=== PATIENT | female | born 2000 | race Caucasian/White ===

== ENCOUNTER 2023-01-17 14:29 | Inpatient (IN) | payer OTHER ==
[2023-01-17] VITALS (8 sets, daily range): BP systolic 103–116; BP diastolic 55–75
[~2023-01-17] VITALS: Ht 149.9 cm; Wt 39.1 kg
[2023-01-17] MEDS ORDERED: normal saline 1000ML IV soln IVB ONE (14:50)
[2023-01-17] MEDS ORDERED: charcoal, activated 50 GM/240 ML bottle PO ONE (14:50)
[2023-01-17] MEDS ORDERED: charcoal/sorbitol 50gm/240ml suspension PO ONE (14:50)
--- NOTE | 2023-01-17 14:50 | NUR ---
TC TO POISON CONTROL WITH OVERDOSE INFORMATION. PATIENT HAS INGESTED APPROX 20 GRAMS OF IBUPROFEN. POISON CONTROL STATES THAT SYMPTOMS TO LOOK FOR INCLUDE: [employer] DEPRESSION, GI UPSET, SEIZURES, METABOLIC ACIDOSIS, RENAL FAILURE, AND CARDIAC CHANGES. POISON CONTROL SUGGESTS: NG TUBE WITH CHARCOAL (IF EARLY), DIAZEPINE ON STAND-BY FOR SEIZURE, DIRECTOR ZONE, INTUBATION FOR DETERIORATION IN MENTATION, CBC, CMP, ABG, EKG EVERY 4 HOURS.
[2023-01-17] MEDS ORDERED: succinylcholine 20mg/ml inj IV ONE ×2 (14:55→15:01)
[2023-01-17] MEDS ORDERED: etomidate 2mg/ml inj. IV ONE (14:55)
[2023-01-17 14:58] LABS: BASOPHILS # (AUTO) 0.1 X10'3 (0-0.2); BASOPHILS % (AUTO) 0.6 % (0-1); EOSINOPHILS # (AUTO) 0.1 X10'3 (0-0.9); EOSINOPHILS % (AUTO) 0.6 % (0-6); HEMATOCRIT 44.5 % (35.0-45.0); HEMOGLOBIN 14.5 g/dl (12.0-16.0); LYMPHOCYTES # (AUTO) 3.5 X10'3 (1.1-4.8); LYMPHOCYTES % (AUTO) 27.8 % (21-51); MEAN CORPUSCULAR HEMOGLOBIN 28.5 PG (27.0-31.0); MEAN CORPUSCULAR HGB CONC 32.5 g/dL (33.0-36.5); MEAN CORPUSCULAR VOLUME 87.5 FL (78-98); MEAN PLATELET VOLUME 8.2 FL (7.4-10.4); MONOCYTES # (AUTO) 1.4 X10'3 (0-0.9); MONOCYTES % (AUTO) 10.7 % (2-12); NEUTROPHILS # (AUTO) 7.7 X10'3 (1.8-7.7); NEUTROPHILS % (AUTO) 60.3 % (42-75); PLATELET COUNT 342 X10'3 (140-440); RED BLOOD COUNT 5.09 X10'6 (4.20-5.60); RED CELL DISTRIBUTION WIDTH 13.4 % (11.5-14.5); WHITE BLOOD COUNT 12.8 X10'3 (4.5-11.0)
[2023-01-17 15:14] LABS: ALANINE AMINOTRANSFERASE 13 U/L (12-78); ALBUMIN 5.1 G/DL (3.4-5.0); ALBUMIN/GLOBULIN RATIO 1.6 (1.1-1.5); ALKALINE PHOSPHATASE 89 IU/L (20-180); ANION GAP 13 (8-16); ASPARTATE AMINO TRANSFERASE 14 U/L (10-37); BILIRUBIN,TOTAL 0.4 MG/DL (0.1-1.0); BLOOD UREA NITROGEN 11 MG/DL (7-18); BUN/CREATININE RATIO 12.8 (6.6-38.0); CALCIUM 9.9 MG/DL (8.5-10.1); CHLORIDE 103 MMOL/L (99-107); CREATININE 0.86 MG/DL (0.40-0.90); GLUCOSE 138 MG/DL (70-104); POTASSIUM 4.2 MMOL/L (3.5-5.1); SODIUM 139 MMOL/L (135-145); TOTAL CARBON DIOXIDE 22.9 MMOL/L (24-32); TOTAL PROTEIN 8.2 G/DL (6.4-8.2); eGFR 84 ML/MIN
[2023-01-17] MEDS ORDERED: propofol 1000mg/100ml bottle 100 ML IV ONE (15:14)
[2023-01-17] MEDS ORDERED: propofol 1000mg/100ml bottle 100 ML IV SCH (15:15)
[2023-01-17 15:16] LABS: ETHANOL < 0.010 GM/DL (0.0-0.010)
[2023-01-17] MEDS: propofol 1000mg/100ml bottle 100 ML IV SCH ×2 (15:36→19:58)
[2023-01-17 15:52] LABS: ACETAMINOPHEN < 2.0 UG/ML (10-30)
[2023-01-17 16:25] LABS: CLARITY,URINE CLEAR (Clear); COLOR,URINE YELLOW (Yellow); GLUCOSE, URINE NEGATIVE (Neg); KETONES,URINE 15 mg/dl (Neg); LEUKOCYTE ESTERASE ,URINE NEGATIVE (Neg); NITRITES, URINE NEGATIVE (Neg); OCCULT BLOOD,URINE SMALL (Neg); PH,URINE 5.5 (4.8-8.0); PROTEIN,URINE NEGATIVE (Neg); UROBILINOGEN,URINE 0.2 E.U/dL (0.2-1.0)
[2023-01-17 16:30] LABS: BACTERIA,URINE NONE SEEN /HPF (Neg); MUCUS STRANDS FEW /LPF (Neg); RBC,URINE NONE SEEN /HPF (0-2); SQUAMOUS EPITHELIAL CELL,UR FEW /LPF (FEW); UA COLLECTION TYPE FOLEY CATH; WBC,URINE 0-4 /HPF (0-4)
[2023-01-17 16:41] LABS: URINE AMPHETAMINE SCREEN NEGATIVE (Neg); URINE BARBITUATE SCREEN NEGATIVE (Neg); URINE BENZODIAZEPINES SCREEN NEGATIVE (Neg); URINE CANNABINOID SCREEN NEGATIVE (Neg); URINE COCAINE SCREEN NEGATIVE (Neg); URINE METHADONE SCREEN NEGATIVE (Neg); URINE OPIATE SCREEN NEGATIVE (Neg); URINE PHENCYCLIDINE SCREEN NEGATIVE (Neg)
[2023-01-17 16:44] LABS: ABG BASE EXCESS -9.7 mmol/L (-2.0-2.0); ABG HCO3 16.4 mmol/L (22.0-26.0); ABG OXYGEN SATURATION 96.5 % (94-97); ABG PCO2 (T) 35.3 mmHg (32.0-45.0); ABG PO2 (T) 90.8 mmHg (75.0-100.0); ALLEN'S TEST POSITIVE; FCOHb 0.3 % (0.0-3.9); FMetHb 0.3 % (0.0-1.5); FO2Hb 95.9 % (94-97); PEEP 5 cm H2O; RESPIRATORY RATE 16 b/min; TIDAL VOLUME 300 mL; TOTAL HEMOGLOBIN 13.8 G/dl (12.0-16.0)
--- NOTE | 2023-01-17 17:57 | NUR ---
TC from poison control at this time, all questions and concerns addressed, update given, recommends continuing IVF and repeat labs at 1830.
[2023-01-17] MEDS ORDERED: albuterol 2.5 MG/3 ML nebule NEB PRN (19:15)
[2023-01-17] MEDS: normal saline 1000ml 1,000 ML IV SCH (19:24)
[2023-01-17 19:42] LABS: BASOPHILS # (AUTO) 0.1 X10'3 (0-0.2); BASOPHILS % (AUTO) 0.5 % (0-1); EOSINOPHILS % (AUTO) 0.1 % (0-6); HEMOGLOBIN 10.9 g/dl (12.0-16.0); LYMPHOCYTES % (AUTO) 7.8 % (21-51); MEAN CORPUSCULAR HEMOGLOBIN 29.1 PG (27.0-31.0); MEAN CORPUSCULAR HGB CONC 33.1 g/dL (33.0-36.5); MEAN CORPUSCULAR VOLUME 87.9 FL (78-98); MONOCYTES # (AUTO) 1.2 X10'3 (0-0.9); MONOCYTES % (AUTO) 9.2 % (2-12); NEUTROPHILS # (AUTO) 10.5 X10'3 (1.8-7.7); NEUTROPHILS % (AUTO) 82.4 % (42-75); PLATELET COUNT 234 X10'3 (140-440); RED BLOOD COUNT 3.76 X10'6 (4.20-5.60); RED CELL DISTRIBUTION WIDTH 13.4 % (11.5-14.5); WHITE BLOOD COUNT 12.7 X10'3 (4.5-11.0)
[2023-01-17 19:47] LABS: ALANINE AMINOTRANSFERASE 16 U/L (12-78); ALBUMIN 3.1 G/DL (3.4-5.0); ALBUMIN/GLOBULIN RATIO 1.2 (1.1-1.5); ALKALINE PHOSPHATASE 60 IU/L (20-180); ANION GAP 11 (8-16); ASPARTATE AMINO TRANSFERASE 22 U/L (10-37); BILIRUBIN,TOTAL 0.3 MG/DL (0.1-1.0); BLOOD UREA NITROGEN 11 MG/DL (7-18); BUN/CREATININE RATIO 13.8 (6.6-38.0); CALCIUM 6.9 MG/DL (8.5-10.1); CHLORIDE 113 MMOL/L (99-107); GLUCOSE 88 MG/DL (70-104); POTASSIUM 3.8 MMOL/L (3.5-5.1); SODIUM 141 MMOL/L (135-145); TOTAL CARBON DIOXIDE 16.7 MMOL/L (24-32); TOTAL PROTEIN 5.6 G/DL (6.4-8.2); eGFR > 90 ML/MIN
--- NOTE | 2023-01-17 20:06 | NUR ---
Pt agitated, ronit at lines, HR 139, bolus of propofol administered and rate increased to 40 mcg/kg
[2023-01-17] MEDS ORDERED: ondansetron/PF 4mg/2ml inj IV PRN (20:30)
[2023-01-17] MEDS ORDERED: acetaminophen 325mg tablet PO PRN (20:30)
[2023-01-17] MEDS ORDERED: magnesium hydroxide 30ml (MOM) UD suspension PO PRN (20:30)
[2023-01-17] MEDS ORDERED: magnesium 4gm in 100ml NS 100 ML IV PRN (20:30)
[2023-01-17] MEDS ORDERED: mag hydrox/Alum hydrox/simeth 30ml oral suspension PO PRN (20:30)
[2023-01-17] MEDS ORDERED: potassium Cl 40MEQ/1/2NS 520ml 520 ML IV PRN (20:30)
[2023-01-17] MEDS ORDERED: magnesium Cl slow-release 64mg tablet PO PRN (20:30)
[2023-01-17] MEDS ORDERED: potassium Cl 20 mEq SR tablet PO PRN ×2 (20:30)
[2023-01-17 20:34] LABS: ABG BASE EXCESS -11.8 mmol/L (-2.0-2.0); ABG HCO3 12.2 mmol/L (22.0-26.0); ABG OXYGEN SATURATION 99.2 % (94-97); ABG PCO2 (T) 23.4 mmHg (32.0-45.0); ABG PO2 (T) 215.4 mmHg (75.0-100.0); ALLEN'S TEST POSITIVE; FCOHb 0.3 % (0.0-3.9); FMetHb 0.5 % (0.0-1.5); FO2Hb 98.4 % (94-97); PATIENT TEMPERATURE 36.9; PEEP 5 cm H2O; RESPIRATORY RATE 18 b/min; TIDAL VOLUME 300 mL; TOTAL HEMOGLOBIN 12.4 G/dl (12.0-16.0)
[2023-01-17 20:44] LABS: MAGNESIUM 1.6 MG/DL (1.5-2.4)
[2023-01-17 21:46] LABS: BASOPHILS % (AUTO) 0.3 % (0-1); EOSINOPHILS % (AUTO) 0.1 % (0-6); HEMATOCRIT 33.9 % (35.0-45.0); HEMOGLOBIN 11.3 g/dl (12.0-16.0); LYMPHOCYTES # (AUTO) 1.6 X10'3 (1.1-4.8); LYMPHOCYTES % (AUTO) 11.9 % (21-51); MEAN CORPUSCULAR HEMOGLOBIN 29.2 PG (27.0-31.0); MEAN CORPUSCULAR HGB CONC 33.3 g/dL (33.0-36.5); MEAN CORPUSCULAR VOLUME 87.6 FL (78-98); MONOCYTES % (AUTO) 7.9 % (2-12); NEUTROPHILS # (AUTO) 10.5 X10'3 (1.8-7.7); NEUTROPHILS % (AUTO) 79.8 % (42-75); PLATELET COUNT 241 X10'3 (140-440); RED BLOOD COUNT 3.87 X10'6 (4.20-5.60); RED CELL DISTRIBUTION WIDTH 13.2 % (11.5-14.5); WHITE BLOOD COUNT 13.2 X10'3 (4.5-11.0)
[2023-01-17 22:51] LABS: ABG BASE EXCESS -8.2 mmol/L (-2.0-2.0); ABG HCO3 14.7 mmol/L (22.0-26.0); ABG OXYGEN SATURATION 98.7 % (94-97); ABG PCO2 (T) 23.4 mmHg (32.0-45.0); ABG PO2 (T) 155.7 mmHg (75.0-100.0); ALLEN'S TEST POSITIVE; FCOHb 0.2 % (0.0-3.9); FMetHb 0.5 % (0.0-1.5); PATIENT TEMPERATURE 36.7; PEEP 5 cm H2O; RESPIRATORY RATE 18 b/min; TIDAL VOLUME 300 mL; TOTAL HEMOGLOBIN 12.1 G/dl (12.0-16.0)
[2023-01-18] VITALS (27 sets, daily range): BP systolic 82–141; BP diastolic 59–97
[2023-01-18] MEDS: propofol 1000mg/100ml bottle 100 ML IV SCH ×3 (02:52→05:56)
[2023-01-18 03:06] LABS: ABG BASE EXCESS -5.9 mmol/L (-2.0-2.0); ABG OXYGEN SATURATION 98.2 % (94-97); ABG PCO2 (T) 19.4 mmHg (32.0-45.0); ABG PO2 (T) 115.4 mmHg (75.0-100.0); ALLEN'S TEST POSITIVE; FCOHb 0.2 % (0.0-3.9); FMetHb 0.5 % (0.0-1.5); FO2Hb 97.5 % (94-97); PATIENT TEMPERATURE 37.2; PEEP 5 cm H2O; RESPIRATORY RATE 16 b/min; TIDAL VOLUME 300 mL; TOTAL HEMOGLOBIN 11.9 G/dl (12.0-16.0)
--- NOTE | 2023-01-18 03:15 | NUR ---
Critical CO2 on ABG of 19.2. Pt set rate 16 on mechanical ventilator. Pt breathing 25-28 times/min. Pt maxed on 50 of propofol. Will try to keep patient as relaxed and sedated as possible.
[2023-01-18] MEDS ORDERED: dextrose 50%-water 50ml dispensing syringe IV ONE ×2 (05:03→05:05)
[2023-01-18] MEDS: normal saline 1000ml 1,000 ML IV SCH ×2 (05:10→19:40)
[2023-01-18 06:15] LABS: BASOPHILS # (AUTO) 0.1 X10'3 (0-0.2); BASOPHILS % (AUTO) 0.5 % (0-1); EOSINOPHILS % (AUTO) 0.5 % (0-6); HEMATOCRIT 31.5 % (35.0-45.0); HEMOGLOBIN 10.6 g/dl (12.0-16.0); LYMPHOCYTES # (AUTO) 1.6 X10'3 (1.1-4.8); LYMPHOCYTES % (AUTO) 14.2 % (21-51); MEAN CORPUSCULAR HEMOGLOBIN 29.1 PG (27.0-31.0); MEAN CORPUSCULAR HGB CONC 33.5 g/dL (33.0-36.5); MEAN CORPUSCULAR VOLUME 86.9 FL (78-98); MEAN PLATELET VOLUME 8.3 FL (7.4-10.4); MONOCYTES # (AUTO) 0.8 X10'3 (0-0.9); MONOCYTES % (AUTO) 7.6 % (2-12); NEUTROPHILS # (AUTO) 8.4 X10'3 (1.8-7.7); NEUTROPHILS % (AUTO) 77.2 % (42-75); PLATELET COUNT 226 X10'3 (140-440); RED BLOOD COUNT 3.63 X10'6 (4.20-5.60); RED CELL DISTRIBUTION WIDTH 13.1 % (11.5-14.5); WHITE BLOOD COUNT 10.9 X10'3 (4.5-11.0)
[2023-01-18 06:38] LABS: ALANINE AMINOTRANSFERASE 16 U/L (12-78); ALBUMIN/GLOBULIN RATIO 1.3 (1.1-1.5); ALKALINE PHOSPHATASE 57 IU/L (20-180); ANION GAP 11 (8-16); ASPARTATE AMINO TRANSFERASE 22 U/L (10-37); BILIRUBIN,TOTAL 0.3 MG/DL (0.1-1.0); BLOOD UREA NITROGEN 6 MG/DL (7-18); BUN/CREATININE RATIO 7.2 (6.6-38.0); CALCIUM 7.2 MG/DL (8.5-10.1); CHLORIDE 113 MMOL/L (99-107); CREATININE 0.83 MG/DL (0.40-0.90); GLUCOSE 274 MG/DL (70-104); MAGNESIUM 1.6 MG/DL (1.5-2.4); SODIUM 140 MMOL/L (135-145); TOTAL CARBON DIOXIDE 15.7 MMOL/L (24-32); TOTAL PROTEIN 5.4 G/DL (6.4-8.2); eGFR 88 ML/MIN
--- NOTE | 2023-01-18 06:38 | NUR ---
Patient in room [facility] 2013. I have received report from Quin VASQUEZ and had the opportunity to ask questions and assume patient care. Addendum: 01/18/23 at 0638 by Rubi Myers RN Amended: Links added.
[2023-01-18 06:51] LABS: POTASSIUM 2.6 MMOL/L (3.5-5.1)
[2023-01-18] MEDS ORDERED: potassium Cl 40MEQ/1/2NS 520ml 520 ML IV ONE ×2 (07:00→11:00)
[2023-01-18] MEDS ORDERED: dextrose 50%-water 50ml dispensing syringe IV PRN ×2 (07:20)
[2023-01-18] MEDS ORDERED: glucagon, human recombinant 1mg kit SUBCUT PRN (07:20)
[2023-01-18] MEDS ORDERED: DEXTROSE 15 GM of carb/4 tabs (each vial/BOTTLE has 4 tablets) PO PRN ×2 (07:20)
[2023-01-18] MEDS ORDERED: ondansetron/PF 4mg/2ml inj IV PRN (07:25)
[2023-01-18] MEDS: K and/or MAG REPLACEMENT MC SCH ×2 (07:31→19:53)
[2023-01-18] MEDS: docusate sod 100mg capsule PO SCH ×2 (07:31→19:53)
--- NOTE | 2023-01-18 07:40 | NUR ---
K+ 2.6. Currently replacing KCL now. Pt. on spontaneous vent mode now. Pt. constantly moving in bed, thrashing about. Propofol maxed. Pt. had emesis despite OGT. Zofran given. BG 65, D5 given, BG came up to 103.
--- NOTE | 2023-01-18 08:00 | NUR ---
Parents at bedside.
[2023-01-18] MEDS ORDERED: NO HOME MEDS (08:13)
--- NOTE | 2023-01-18 08:20 | NUR ---
WEANING PARAMETERS: VC: 1.4 NIF: -25 RSBI: 55 + cuff leak
--- NOTE | 2023-01-18 10:21 | NUR ---
ROUNDS NOTE: Pt. can transfer to floor without tele CXR daily for the next two days to r/o aspiration pneumonia Red diet
--- NOTE | 2023-01-18 11:48 | NUR ---
Pt initially intubated DX intentional OD on ibuprofen now extubated this AM advanced to regular diet. Current BMI 17.4 however pt pending scaled wt this admit w/ small stature noted during rounds this AM and no prior wt hx in EMR. Will monitor for initial PO acceptance and nutrition intervention needs this admit. Addendum: 01/18/23 at [address] Amended: Links added.
--- NOTE | 2023-01-18 13:19 | NUR ---
Poison Control called for update. Update on VS and labs and overall pt. condition given.
[2023-01-18 15:41] LABS: ALANINE AMINOTRANSFERASE 19 U/L (12-78); ALBUMIN 3.3 G/DL (3.4-5.0); ALBUMIN/GLOBULIN RATIO 1.2 (1.1-1.5); ALKALINE PHOSPHATASE 67 IU/L (20-180); ANION GAP 9 (8-16); ASPARTATE AMINO TRANSFERASE 15 U/L (10-37); BILIRUBIN,TOTAL 0.5 MG/DL (0.1-1.0); BLOOD UREA NITROGEN 4 MG/DL (7-18); BUN/CREATININE RATIO 6.3 (6.6-38.0); CREATININE 0.64 MG/DL (0.40-0.90); GLUCOSE 98 MG/DL (70-104); MAGNESIUM 1.6 MG/DL (1.5-2.4); SODIUM 142 MMOL/L (135-145); TOTAL CARBON DIOXIDE 18.4 MMOL/L (24-32); TOTAL PROTEIN 6.1 G/DL (6.4-8.2); eGFR > 90 ML/MIN
[2023-01-18 16:11] LABS: CHLORIDE 115 MMOL/L (99-107)
--- NOTE | 2023-01-18 18:12 | NUR ---
Problems reprioritized. Patient report given, questions answered & plan of care reviewed with Lizbeth peguero RN.
--- NOTE | 2023-01-18 18:31 | NUR ---
I have received report and assumed care of a 22 year old with a positive suicide attempt by taking 80-100 200mg ibuprofen, poison control guide in place. Family at bedside, pt has a BCNA in place for safety and self harm protection. Pt has a somewhat child like affect. Per family, pt has no cognitive or social issues, she has a low BMI, with poor oral hygiene, thinning hair and brittle nails. Pt talks as a small child would. Mother and father seem to be enabling pt to do her own ADLs. For example, father feeds the pt, wipes her mouth and cuts her dinner into small bites. When asking pt if she can use cutlery, pt just smiles and father states " I prefer to help her". Pt has a weak deep cough.
--- NOTE | 2023-01-18 19:40 | NUR ---
Report given to Luci VASQUEZ plan of care reviewed, BCNA in room with PT
--- NOTE | 2023-01-18 21:40 | NUR ---
Arrived from [facility] via [facility] with sitter. helped into hospital bed. pt not very verbal. uses hand gestures occasionally for yes no maybe.seems to have soar throat.
[2023-01-19] MEDS: normal saline 1000ml 1,000 ML IV SCH ×2 (03:43→15:50)
[2023-01-19 06:00] VITALS: BP 116/64
[2023-01-19 06:24] LABS: BASOPHILS # (AUTO) 0.1 X10'3 (0-0.2); BASOPHILS % (AUTO) 0.5 % (0-1); EOSINOPHILS # (AUTO) 0.2 X10'3 (0-0.9); EOSINOPHILS % (AUTO) 1.4 % (0-6); LYMPHOCYTES # (AUTO) 1.7 X10'3 (1.1-4.8); MEAN CORPUSCULAR HEMOGLOBIN 29.1 PG (27.0-31.0); MEAN CORPUSCULAR HGB CONC 33.4 g/dL (33.0-36.5); MEAN PLATELET VOLUME 7.9 FL (7.4-10.4); MONOCYTES % (AUTO) 8.4 % (2-12); NEUTROPHILS # (AUTO) 9.1 X10'3 (1.8-7.7); NEUTROPHILS % (AUTO) 75.7 % (42-75); PLATELET COUNT 239 X10'3 (140-440); RED BLOOD COUNT 4.13 X10'6 (4.20-5.60); RED CELL DISTRIBUTION WIDTH 13.6 % (11.5-14.5)
--- NOTE | 2023-01-19 06:24 | NUR ---
Report to Shahida VASQUEZ.
[2023-01-19 06:32] LABS: ALANINE AMINOTRANSFERASE 18 U/L (12-78); ALBUMIN 3.2 G/DL (3.4-5.0); ALBUMIN/GLOBULIN RATIO 1.1 (1.1-1.5); ALKALINE PHOSPHATASE 67 IU/L (20-180); ANION GAP 11 (8-16); ASPARTATE AMINO TRANSFERASE 16 U/L (10-37); BILIRUBIN,TOTAL 0.6 MG/DL (0.1-1.0); BLOOD UREA NITROGEN 2 MG/DL (7-18); BUN/CREATININE RATIO 3.4 (6.6-38.0); CALCIUM 8.4 MG/DL (8.5-10.1); CHLORIDE 108 MMOL/L (99-107); CREATININE 0.59 MG/DL (0.40-0.90); GLUCOSE 81 MG/DL (70-104); MAGNESIUM 1.6 MG/DL (1.5-2.4); POTASSIUM 3.5 MMOL/L (3.5-5.1); SODIUM 138 MMOL/L (135-145); TOTAL CARBON DIOXIDE 18.8 MMOL/L (24-32); TOTAL PROTEIN 6.2 G/DL (6.4-8.2); eGFR > 90 ML/MIN
[2023-01-19] MEDS: K and/or MAG REPLACEMENT MC SCH ×3 (07:28→19:54)
[2023-01-19] MEDS: docusate sod 100mg capsule PO SCH ×2 (08:00→19:56)
[2023-01-19 11:00] VITALS: BP 106/62
[2023-01-19 18:00] VITALS: BP 110/68
--- NOTE | 2023-01-19 18:40 | NUR ---
Patient in room [facility]. I have received report from CHRISTINA Pinedo and had the opportunity to ask questions and assume patient care.
--- NOTE | 2023-01-19 18:54 | NUR ---
Patient in room [facility]. I have received report from Mera VASQUEZ and had the opportunity to ask questions and assume patient care.
[2023-01-19 22:00] VITALS: BP 123/76
[2023-01-20 05:01] LABS: BASOPHILS # (AUTO) 0.1 X10'3 (0-0.2); BASOPHILS % (AUTO) 0.7 % (0-1); EOSINOPHILS # (AUTO) 0.3 X10'3 (0-0.9); EOSINOPHILS % (AUTO) 3.7 % (0-6); HEMATOCRIT 36.4 % (35.0-45.0); HEMOGLOBIN 12.3 g/dl (12.0-16.0); LYMPHOCYTES # (AUTO) 1.9 X10'3 (1.1-4.8); LYMPHOCYTES % (AUTO) 24.2 % (21-51); MEAN CORPUSCULAR HGB CONC 33.7 g/dL (33.0-36.5); MEAN CORPUSCULAR VOLUME 86.1 FL (78-98); MEAN PLATELET VOLUME 7.9 FL (7.4-10.4); MONOCYTES # (AUTO) 0.9 X10'3 (0-0.9); MONOCYTES % (AUTO) 11.2 % (2-12); NEUTROPHILS # (AUTO) 4.8 X10'3 (1.8-7.7); NEUTROPHILS % (AUTO) 60.2 % (42-75); PLATELET COUNT 259 X10'3 (140-440); RED BLOOD COUNT 4.23 X10'6 (4.20-5.60); RED CELL DISTRIBUTION WIDTH 13.5 % (11.5-14.5)
[2023-01-20 05:14] LABS: ALANINE AMINOTRANSFERASE 16 U/L (12-78); ALBUMIN 3.1 G/DL (3.4-5.0); ALBUMIN/GLOBULIN RATIO 0.9 (1.1-1.5); ALKALINE PHOSPHATASE 75 IU/L (20-180); ANION GAP 7 (8-16); ASPARTATE AMINO TRANSFERASE 13 U/L (10-37); BILIRUBIN,TOTAL 0.4 MG/DL (0.1-1.0); BLOOD UREA NITROGEN 6 MG/DL (7-18); BUN/CREATININE RATIO 10.2 (6.6-38.0); CALCIUM 8.7 MG/DL (8.5-10.1); CHLORIDE 108 MMOL/L (99-107); CREATININE 0.59 MG/DL (0.40-0.90); GLUCOSE 101 MG/DL (70-104); MAGNESIUM 1.8 MG/DL (1.5-2.4); POTASSIUM 3.8 MMOL/L (3.5-5.1); SODIUM 139 MMOL/L (135-145); TOTAL CARBON DIOXIDE 23.7 MMOL/L (24-32); TOTAL PROTEIN 6.4 G/DL (6.4-8.2); eGFR > 90 ML/MIN
[2023-01-20 06:00] VITALS: BP 118/70
--- NOTE | 2023-01-20 07:00 | NUR ---
Problems reprioritized. Patient report given, questions answered & plan of care reviewed with CHRISTINA Manjarrez.
--- NOTE | 2023-01-20 07:15 | NUR ---
Patient in room [facility]. I have received report from Mera VASQUEZ and had the opportunity to ask questions and assume patient care.
[2023-01-20] MEDS: docusate sod 100mg capsule PO SCH (08:54)
[2023-01-20] MEDS: normal saline 1000ml 1,000 ML IV SCH (09:10)
[2023-01-20 10:00] VITALS: BP 126/78
--- NOTE | 2023-01-20 17:50 | NUR ---
Pt Dc to home with parents. pt is A & o x4 and in no apparent distress. Pt and parents were educated and given several numbers for suicide prevention. Pt;s IV dc intact earlier it was infiltrated. pt happy to go home and has no suicidal ideations.
== END 2023-01-20 17:34 | disposition home or self-care (01) | DRG 917 ==
LOC: ER 14:30 → ED HOLD 20:29 → CICU 2S 22:05 → SUR 3N 01-18 21:44
PROVIDERS: ADMIT Internal Medicine Critical Care Medicine; ATTEND Internal Medicine
PROC: 5A1935Z Respiratory Ventilation, Less than 24 Consecutive Hours (ICD-10-PCS; principal; 2023-01-17)
PROC: 0BH17EZ Insertion of Endotracheal Airway into Trachea, Via Natural or Artificial Opening (ICD-10-PCS; 2023-01-17)
DX: T39.312A Poisoning by propionic acid derivatives, intentional self-harm, initial encounter (principal); G93.41 Metabolic encephalopathy; E87.20 Acidosis, unspecified; D72.829 Elevated white blood cell count, unspecified; Z82.49 Family history of ischemic heart disease and other diseases of the circulatory system; Y92.89 Other specified places as the place of occurrence of the external cause
CPT/HCPCS: 31500; 36415; 36600; 71045; 80053; 80305; 80320; 80329; 81001; 82140; 82803; 82948; 83735; 84484; 85018; 85025; 85610; 87081; 94002; 94003; 94640; 94760; 99291; A4353; A4615; A5200; A6212; A7015; C1751; G0378; J0330; J2405; J2704; J3480; J3490; J7030